=== PATIENT | male | born 1965 | race Caucasian/White ===

== ENCOUNTER 2022-09-08 15:48 | Emergency (ER) | payer OTHER ==
[2022-09-08 16:18] VITALS: RESP 18; TEMP 97.8; BMI 40.1
[2022-09-08] MEDS ORDERED: ACETAMINOPHEN 1000 MG/100 ML BAG IVPB ONE (17:25)
[2022-09-08] MEDS ORDERED: MECLIZINE HCL 25 MG TABLET (FP) PO ONE (17:25)
[2022-09-08] MEDS ORDERED: MECLIZINE HCL 25 MG TABLET (FP) ONE (17:35)
[2022-09-08] MEDS ORDERED: ACETAMINOPHEN INJECTION 100 ML IVPB ONE (17:35)
[2022-09-08 18:45] LABS: BASO % 0.3 % (0-2.0); EOS % 0.5 % (0-4.5); HEMATOCRIT 41.7 % (35.4-49); HEMOGLOBIN 13.8 GM/dL (11.7-16.9); LYMPH % 10.6 % (8-40); MCH 30.6 pg (25.7-33.7); MCHC 33.2 g/dl (32.0-35.9); MEAN CELL VOLUME 92.2 fl (80-96); MEAN PLT VOLUME 8.7 fl (7.5-11.1); MONO % 5.5 % (3.8-10.2); NEUT % 83.1 % (42.8-82.8); PLATELET COUNT 195 10^3/uL (134-434); RBC 4.52 M/mm3 (4.00-5.60); RDW 13.8 % (11.9-15.9); WHITE BLOOD COUNT 10.6 K/mm3 (4.0-10.0)
[2022-09-08 19:07] LABS: CALCIUM 9.3 mg/dL (8.5-10.1)
[2022-09-08 19:08] LABS: ALBUMIN 3.8 g/dl (3.4-5.0); BLOOD UREA NITROGEN 32.2 mg/dL (7-18)
[2022-09-08 19:11] VITALS: BP 115/84; PULSE 80
[2022-09-08 19:11] LABS: CREATININE 2.2 mg/dL (0.55-1.3)
[2022-09-08 19:12] LABS: TOT PROT 6.6 g/dl (6.4-8.2)
[2022-09-08 19:13] LABS: BILIRUBIN,TOTAL 0.3 mg/dL (0.2-1)
== END 2022-09-08 20:40 | disposition home or self-care (01) ==
LOC: JER 15:48
PROC: 3E0333Z Introduction of Anti-inflammatory into Peripheral Vein, Percutaneous Approach (ICD-10-PCS; principal; 2022-09-08)
DX: R55 Syncope and collapse (principal)
CPT/HCPCS: 36415; 72170-TC-FY; 73502-TC-LT-FY; 80053; 84484; 85025; 93005; 93010; 99285-25